=== PATIENT | male | born 1975 | race Caucasian/White ===

== ENCOUNTER 2023-04-03 09:31 | Emergency (ER) | payer BC ==
[2023-04-03 10:50] LABS: BASOPHILS ABSOLUTE AUTO 0.03 K/uL (0.00-0.10); BASOPHILS PERCENT AUTO 0.6 % (0.1-1.3); EOSINOPHILS ABSOLUTE AUTO 0.23 K/uL (0.00-0.40); EOSINOPHILS PERCENT AUTO 4.9 % (0.0-5.4); HEMATOCRIT 42.5 % (38.4-49.7); HEMOGLOBIN 14.4 g/dL (12.9-16.9); IMMATURE GRAN PERCENT AUTO 0.2 % (0.0-0.7); LYMPHOCYTES ABSOLUTE AUTO 1.59 K/uL (0.8-3.3); LYMPHOCYTES PERCENT AUTO 34.2 % (11.4-47.7); MEAN CORPUSCULAR HEMOGLOBIN 30.9 pg (31.6-35.5); MEAN CORPUSCULAR HGB CONC 33.9 g/dL (31.6-35.5); MEAN CORPUSCULAR VOLUME 91.2 fL (81.4-99.0); MONOCYTES ABSOLUTE AUTO 0.42 K/uL (0.20-0.90); NEUTROPHILS ABSOLUTE AUTO 2.37 K/uL (1.0-7.6); NEUTROPHILS PERCENT AUTO 51.1 % (40.0-78.1); PLATELET COUNT,PLT 201 K/uL (130-375); RED BLOOD CELL COUNT 4.66 M/uL (4.14-5.76); WHITE BLOOD CELL COUNT,WBC 4.7 K/uL (3.2-11.0)
[2023-04-03 10:51] LABS: IMMATURE GRAN ABSOLUTE AUTO 0.01 K/uL (0.00-0.23)
[2023-04-03 11:16] LABS: ANION GAP 5.8 mmol/L (5.0-14.0); CALCIUM 9.1 mg/dL (8.5-10.1); EST CRCL DRUG DOSING (CG) 83.29 mL/min; POTASSIUM,K 4.1 mmol/L (3.6-5.2); TROPONIN I HIGH SENSITIVITY 9.4 pg/mL (<=60.3)
== END 2023-04-03 11:56 | disposition home or self-care (01) ==
LOC: JP.ED 09:31
DX: R07.89 Other chest pain (principal); R03.0 Elevated blood-pressure reading, without diagnosis of hypertension; R12 Heartburn
CPT/HCPCS: 36415; 71045; 71045-26; 80048; 84484; 85025; 85379; 93005; 99285

== ENCOUNTER 2023-07-21 06:10 | Day surgery (SDC) | payer BC ==
[2023-07-21] MEDS ORDERED: Lactated Ringers 1,000 ML IV SCH (07:00)
[2023-07-21] MEDS ORDERED: Midazolam 1 MG/ML 2 ML SDV ONE (07:18)
[2023-07-21] MEDS ORDERED: fentaNYL 100 MCG/2 ML SDV ONE (07:18)
[2023-07-21] MEDS ORDERED: Propofol 200 MG/20 ML SDV ONE (07:18)
== END 2023-07-21 09:15 | disposition home or self-care (01) ==
LOC: JP.SDS 06:10
PROVIDERS: ATTEND Student in an Organized Health Care Education/Training Program
DX: Z12.11 Encounter for screening for malignant neoplasm of colon (principal); K29.50 Unspecified chronic gastritis without bleeding; K22.89 Other specified disease of esophagus; K21.9 Gastro-esophageal reflux disease without esophagitis; Z79.899 Other long term (current) drug therapy
CPT/HCPCS: 88305; J2250; J2704; J3010; J7120